=== PATIENT | male | born 1955 | race African-American/Black ===

== ENCOUNTER 2021-07-08 11:13 | Inpatient (IN) | payer OTHER ==
[2021-07-08 13:26] LABS: BASO % 1.3 % (0-2.0); EOS % 0.3 % (0-4.5); HEMATOCRIT 37.2 % (35.4-49); LYMPH % 16.5 % (8-40); MCH 30.3 pg (25.7-33.7); MEAN CELL VOLUME 86.5 fl (80-96); MEAN PLT VOLUME 8.6 fl (7.5-11.1); NEUT % 67.9 % (42.8-82.8); PLATELET COUNT 267 10^3/uL (134-434); RDW 17.4 % (11.9-15.9); WHITE BLOOD COUNT 2.9 K/mm3 (4.0-10.0)
[2021-07-08 13:48] LABS: BLOOD UREA NITROGEN 39.3 mg/dL (7-18); CALCIUM 8.9 mg/dL (8.5-10.1)
[2021-07-08 13:49] LABS: ALBUMIN 2.8 g/dl (3.4-5.0)
[2021-07-08 13:52] LABS: CREATININE 2.2 mg/dL (0.55-1.3)
[2021-07-08 13:54] LABS: BILIRUBIN,TOTAL 1.3 mg/dL (0.2-1); TOT PROT 5.7 g/dl (6.4-8.2)
[2021-07-08 14:10] LABS: INR 1.13 (0.83-1.09)
[2021-07-08] MEDS ORDERED: ACETAMINOPHEN 1000 MG/100 ML BAG IVPB PRN (16:40)
[2021-07-08] MEDS ORDERED: DOCUSATE SODIUM 100 MG CAPSULE (FP) PO PRN (16:40)
[2021-07-08] MEDS: SODIUM CHLORIDE 1,000 ML IV SCH (20:03)
[2021-07-08] MEDS ORDERED: oxyCODONE HCL 5 MG TABLET ONE (20:07)
[2021-07-08] MEDS: oxyCODONE HCL 5 MG TABLET PO PRN (20:13)
[2021-07-08] MEDS ORDERED: HEPARIN NA (PORCINE) 5,000 UNITS/ML 1ML VIAL SQ SCH (22:00)
[2021-07-08 23:42] VITALS: BMI 25.0
[2021-07-09] MEDS: HEPARIN NA (PORCINE) 5,000 UNITS/ML 1ML VIAL SQ SCH ×2 (09:12→21:49)
[2021-07-09] MEDS: amLODIPine BESYLATE 5 MG TABLET (FP) PO SCH (09:12)
[2021-07-09] MEDS: POLYETHYLENE GLYCOL (HEALTHYLAX) 3350 17 GM PACKET PO SCH (09:12)
[2021-07-09] MEDS: oxyCODONE HCL 5 MG TABLET PO PRN ×2 (09:20→20:22)
[2021-07-09 10:00] LABS: BASO % 1.1 % (0-2.0); EOS % 0.3 % (0-4.5); HEMATOCRIT 39.4 % (35.4-49); HEMOGLOBIN 13.3 GM/dL (11.7-16.9); LYMPH % 17.9 % (8-40); MCH 29.5 pg (25.7-33.7); MCHC 33.7 g/dl (32.0-35.9); MEAN CELL VOLUME 87.5 fl (80-96); MEAN PLT VOLUME 9.1 fl (7.5-11.1); NEUT % 69.7 % (42.8-82.8); PLATELET COUNT 271 10^3/uL (134-434); RBC 4.51 M/mm3 (4.00-5.60); RDW 17.3 % (11.9-15.9); WHITE BLOOD COUNT 3.4 K/mm3 (4.0-10.0)
[2021-07-09] MEDS ORDERED: ENOXAPARIN NA (PORCINE) 40 MG/0.4 ML DISP.SYRIN SQ SCH (10:00)
[2021-07-09] MEDS ORDERED: PIPERACILLIN/TAZOB 3.375 GM 3.375 GM in DEXTROSE 5%-WATER - 50 ML IVPB SCH (10:15)
[2021-07-09] MEDS ORDERED: DEXTROSE 5%-WATER - 50 ML IVPB ONE ×3 (10:32→20:10)
[2021-07-09] MEDS ORDERED: PIPERACILLIN/TAZOBACTAM 3.375 GM VIAL IVPB ONE (10:32)
[2021-07-09] MEDS: DOCUSATE SODIUM 100 MG CAPSULE (FP) PO SCH ×2 (10:35→21:49)
[2021-07-09 10:43] LABS: ALBUMIN 2.7 g/dl (3.4-5.0); BLOOD UREA NITROGEN 38.9 mg/dL (7-18); MAGNESIUM 2.7 mg/dL (1.8-2.4)
[2021-07-09 10:45] LABS: PHOSPHOROUS 4.9 mg/dL (2.5-4.9)
[2021-07-09 10:47] LABS: BILIRUBIN,TOTAL 1.4 mg/dL (0.2-1); TOT PROT 5.7 g/dl (6.4-8.2)
[2021-07-09 11:53] LABS: ANISOCYTOSIS 2+; MACROCYTOSIS 0; OVALOCYTE 1+; PLATELET ESTIMATE NORMAL
[2021-07-09] MEDS: SODIUM ZIRCONIUM CYCLOSILICATE (LOKELMA) 5 GM PACKET PO SCH (12:29)
[2021-07-09 14:11] LABS: SARS-CoV-2 NAA Not Detected (Not Detected)
[2021-07-09] MEDS: PIPERACILLIN/TAZOB 3.375 GM 3.375 GM in DEXTROSE 5%-WATER - 50 ML IVPB SCH ×2 (15:11→15:12)
[2021-07-09] MEDS ORDERED: PIPERACILLIN/TAZOBACTAM 2.25 GM VIAL IVPB ONE ×2 (15:13→20:09)
[2021-07-09] MEDS: PIPERACILLIN/TAZOB 2.25 GM 2.25 GM in DEXTROSE 5%-WATER - 50 ML IVPB SCH ×2 (15:14→20:22)
[2021-07-09 15:43] LABS: EPI CELLS 7 /uL (0-25.1); HYALINE CASTS 1 /uL (0-3.1); URINE APPEARANCE CLEAR; URINE BACTERIA 4 /uL (0-1359); URINE BILIRUBIN NEGATIVE (NEGATIVE); URINE COLOR DK YELLOW; URINE GLUCOSE (UA) NEGATIVE (NEGATIVE); URINE KETONE TRACE (NEGATIVE); URINE LEUK ESTERASE NEGATIVE (NEGATIVE); URINE NITRITE NEGATIVE (NEGATIVE); URINE PROTEIN 1+ (NEGATIVE); URINE RBC 6 /uL (0-23.9); URINE WBC 31 /uL (0-25.8)
[2021-07-09] MEDS ORDERED: MELATONIN 5 MG TABLETS PO ONE (19:52)
[2021-07-09] MEDS: SODIUM CHLORIDE 1,000 ML IV SCH (20:21)
[2021-07-10] MEDS ORDERED: PIPERACILLIN/TAZOBACTAM 2.25 GM VIAL IVPB ONE ×5 (00:58→21:11)
[2021-07-10] MEDS ORDERED: DEXTROSE 5%-WATER - 50 ML IVPB ONE ×5 (00:59→21:12)
[2021-07-10] MEDS: PIPERACILLIN/TAZOB 2.25 GM 2.25 GM in DEXTROSE 5%-WATER - 50 ML IVPB SCH ×4 (02:39→21:27)
[2021-07-10] MEDS: SODIUM ZIRCONIUM CYCLOSILICATE (LOKELMA) 5 GM PACKET PO SCH (09:41)
[2021-07-10] MEDS: DOCUSATE SODIUM 100 MG CAPSULE (FP) PO SCH ×2 (09:41→21:28)
[2021-07-10] MEDS: amLODIPine BESYLATE 5 MG TABLET (FP) PO SCH (09:41)
[2021-07-10] MEDS: HEPARIN NA (PORCINE) 5,000 UNITS/ML 1ML VIAL SQ SCH ×2 (09:42→21:28)
[2021-07-10] MEDS: POLYETHYLENE GLYCOL (HEALTHYLAX) 3350 17 GM PACKET PO SCH (09:42)
[2021-07-10 09:59] LABS: BASO % 1.1 % (0-2.0); EOS % 0.1 % (0-4.5); HEMATOCRIT 36.7 % (35.4-49); HEMOGLOBIN 12.5 GM/dL (11.7-16.9); LYMPH % 20.1 % (8-40); MCH 29.3 pg (25.7-33.7); MEAN CELL VOLUME 86.1 fl (80-96); MONO % 13.4 % (3.8-10.2); NEUT % 65.3 % (42.8-82.8); PLATELET COUNT 270 10^3/uL (134-434); RBC 4.27 M/mm3 (4.00-5.60); RDW 17.7 % (11.9-15.9); WHITE BLOOD COUNT 3.3 K/mm3 (4.0-10.0)
[2021-07-10 10:17] LABS: ALBUMIN 2.5 g/dl (3.4-5.0); BLOOD UREA NITROGEN 41.6 mg/dL (7-18); CALCIUM 8.8 mg/dL (8.5-10.1)
[2021-07-10 10:22] LABS: TOT PROT 5.5 g/dl (6.4-8.2)
[2021-07-10 10:24] LABS: BILIRUBIN,TOTAL 2.2 mg/dL (0.2-1)
[2021-07-10 12:22] LABS: ANISOCYTOSIS 0; MACROCYTOSIS 0; PLATELET ESTIMATE NORMAL
[2021-07-10] MEDS: oxyCODONE HCL 5 MG TABLET PO PRN (17:18)
[2021-07-10] MEDS: ACETAMINOPHEN 500 MG TABLET (FP) PO PRN (21:28)
[2021-07-11] MEDS ORDERED: PIPERACILLIN/TAZOBACTAM 2.25 GM VIAL IVPB ONE ×4 (01:24→21:05)
[2021-07-11] MEDS ORDERED: DEXTROSE 5%-WATER - 50 ML IVPB ONE ×4 (01:24→21:05)
[2021-07-11] MEDS: oxyCODONE HCL 5 MG TABLET PO PRN ×2 (02:07→10:54)
[2021-07-11] MEDS: PIPERACILLIN/TAZOB 2.25 GM 2.25 GM in DEXTROSE 5%-WATER - 50 ML IVPB SCH ×4 (02:07→21:47)
[2021-07-11] MEDS: amLODIPine BESYLATE 5 MG TABLET (FP) PO SCH (10:31)
[2021-07-11] MEDS: HEPARIN NA (PORCINE) 5,000 UNITS/ML 1ML VIAL SQ SCH ×2 (10:31→21:47)
[2021-07-11] MEDS: SODIUM ZIRCONIUM CYCLOSILICATE (LOKELMA) 5 GM PACKET PO SCH (10:31)
[2021-07-11] MEDS: DOCUSATE SODIUM 100 MG CAPSULE (FP) PO SCH ×2 (10:31→21:47)
[2021-07-11] MEDS: POLYETHYLENE GLYCOL (HEALTHYLAX) 3350 17 GM PACKET PO SCH (10:31)
[2021-07-11] MEDS ORDERED: guaiFENesin 200 MG/10 ML 10 ML UNIT-DOSE CUPS PO PRN (11:55)
[2021-07-11] MEDS ORDERED: chlorproMAZINE HCL 25 MG TABLET PO ONE (12:56)
[2021-07-11] MEDS: ALLOPURINOL 300 MG TABLET (FP) PO SCH (21:58)
[2021-07-12] MEDS ORDERED: PIPERACILLIN/TAZOBACTAM 2.25 GM VIAL IVPB ONE ×4 (01:43→20:47)
[2021-07-12] MEDS ORDERED: DEXTROSE 5%-WATER - 50 ML IVPB ONE ×4 (01:44→20:47)
[2021-07-12] MEDS: PIPERACILLIN/TAZOB 2.25 GM 2.25 GM in DEXTROSE 5%-WATER - 50 ML IVPB SCH ×4 (02:07→21:15)
[2021-07-12] MEDS: oxyCODONE HCL 5 MG TABLET PO PRN ×2 (08:46→15:07)
[2021-07-12 09:13] LABS: BASO % 2.1 % (0-2.0); EOS % 0.1 % (0-4.5); HEMATOCRIT 36.1 % (35.4-49); HEMOGLOBIN 12.6 GM/dL (11.7-16.9); LYMPH % 19.5 % (8-40); MCH 29.8 pg (25.7-33.7); MCHC 34.8 g/dl (32.0-35.9); MEAN CELL VOLUME 85.5 fl (80-96); MEAN PLT VOLUME 8.8 fl (7.5-11.1); NEUT % 68.3 % (42.8-82.8); PLATELET COUNT 263 10^3/uL (134-434); RBC 4.22 M/mm3 (4.00-5.60); WHITE BLOOD COUNT 3.3 K/mm3 (4.0-10.0)
[2021-07-12] MEDS: HEPARIN NA (PORCINE) 5,000 UNITS/ML 1ML VIAL SQ SCH ×2 (09:18→21:17)
[2021-07-12 09:25] LABS: INR 1.08 (0.83-1.09); PROTHROMBIN TIME (PATIENT) 12.4 SEC (9.7-13.0)
[2021-07-12 09:26] LABS: ACTIVATED PTT 26.6 SECONDS (25.2-36.5)
[2021-07-12 10:16] LABS: BLOOD UREA NITROGEN 43.1 mg/dL (7-18); CALCIUM 8.4 mg/dL (8.5-10.1)
[2021-07-12 10:19] LABS: URIC ACID 5.2 mg/dL (2.6-7.2)
[2021-07-12 10:20] LABS: CREATININE 2.3 mg/dL (0.55-1.3)
[2021-07-12] MEDS: SODIUM ZIRCONIUM CYCLOSILICATE (LOKELMA) 5 GM PACKET PO SCH (10:53)
[2021-07-12] MEDS: POLYETHYLENE GLYCOL (HEALTHYLAX) 3350 17 GM PACKET PO SCH (10:53)
[2021-07-12] MEDS: amLODIPine BESYLATE 5 MG TABLET (FP) PO SCH (10:53)
[2021-07-12] MEDS: DOCUSATE SODIUM 100 MG CAPSULE (FP) PO SCH ×2 (10:53→21:17)
[2021-07-12] MEDS: ALLOPURINOL 300 MG TABLET (FP) PO SCH (10:53)
[2021-07-12 17:02] LABS: BF WBC & OTHER NUCLEATED CELLS 1276 /mm3
[2021-07-12 19:01] LABS: BODY FLUID MACROPHAGES 15 %
[2021-07-13] MEDS ORDERED: PIPERACILLIN/TAZOBACTAM 2.25 GM VIAL IVPB ONE ×4 (00:45→21:37)
[2021-07-13] MEDS ORDERED: DEXTROSE 5%-WATER - 50 ML IVPB ONE ×4 (00:45→21:37)
[2021-07-13] MEDS: PIPERACILLIN/TAZOB 2.25 GM 2.25 GM in DEXTROSE 5%-WATER - 50 ML IVPB SCH ×4 (02:01→21:58)
[2021-07-13] MEDS: ACETAMINOPHEN 500 MG TABLET (FP) PO PRN (05:58)
[2021-07-13] MEDS ORDERED: METOCLOPRAMIDE HCL INJECTION 10 MG/2 ML VIAL IVPB PRN (07:16)
[2021-07-13 09:03] LABS: BASO % 0.9 % (0-2.0); EOS % 0.1 % (0-4.5); HEMATOCRIT 34.2 % (35.4-49); HEMOGLOBIN 11.7 GM/dL (11.7-16.9); LYMPH % 19.1 % (8-40); MCH 29.1 pg (25.7-33.7); MCHC 34.2 g/dl (32.0-35.9); MEAN CELL VOLUME 85.3 fl (80-96); MONO % 11.6 % (3.8-10.2); NEUT % 68.3 % (42.8-82.8); PLATELET COUNT 242 10^3/uL (134-434); RBC 4.01 M/mm3 (4.00-5.60); RDW 18.2 % (11.9-15.9)
[2021-07-13 09:28] LABS: ALBUMIN 2.2 g/dl (3.4-5.0); BLOOD UREA NITROGEN 48.4 mg/dL (7-18); CALCIUM 8.7 mg/dL (8.5-10.1)
[2021-07-13 09:30] LABS: URIC ACID 5.1 mg/dL (2.6-7.2)
[2021-07-13 09:31] LABS: CREATININE 2.8 mg/dL (0.55-1.3)
[2021-07-13 09:32] LABS: BILIRUBIN,TOTAL 1.7 mg/dL (0.2-1)
[2021-07-13] MEDS: ALLOPURINOL 300 MG TABLET (FP) PO SCH (09:54)
[2021-07-13] MEDS: DOCUSATE SODIUM 100 MG CAPSULE (FP) PO SCH ×2 (09:55→21:59)
[2021-07-13] MEDS: POLYETHYLENE GLYCOL (HEALTHYLAX) 3350 17 GM PACKET PO SCH (09:55)
[2021-07-13] MEDS: SODIUM ZIRCONIUM CYCLOSILICATE (LOKELMA) 5 GM PACKET PO SCH (09:55)
[2021-07-13] MEDS: amLODIPine BESYLATE 5 MG TABLET (FP) PO SCH (09:56)
[2021-07-13] MEDS: HEPARIN NA (PORCINE) 5,000 UNITS/ML 1ML VIAL SQ SCH ×2 (11:00→21:58)
[2021-07-13] MEDS ORDERED: SODIUM CHLORIDE 1,000 ML IV SCH (12:15)
[2021-07-13] MEDS: SODIUM CHLORIDE 1,000 ML IV SCH (16:27)
[2021-07-13] MEDS: PANTOPRAZOLE SODIUM 40 MG VIAL IVPB SCH (21:58)
[2021-07-14] MEDS ORDERED: DEXTROSE 5%-WATER - 50 ML IVPB ONE (02:05)
[2021-07-14] MEDS ORDERED: PIPERACILLIN/TAZOBACTAM 2.25 GM VIAL IVPB ONE (02:05)
[2021-07-14] MEDS: PIPERACILLIN/TAZOB 2.25 GM 2.25 GM in DEXTROSE 5%-WATER - 50 ML IVPB SCH ×2 (02:12→11:30)
[2021-07-14] MEDS: SODIUM CHLORIDE 1,000 ML IV SCH ×3 (02:13→20:00)
[2021-07-14] MEDS: oxyCODONE HCL 5 MG TABLET PO PRN (07:54)
[2021-07-14 08:55] LABS: EOS % 0.1 % (0-4.5); HEMATOCRIT 33.1 % (35.4-49); HEMOGLOBIN 11.5 GM/dL (11.7-16.9); LYMPH % 14.8 % (8-40); MCH 29.5 pg (25.7-33.7); MCHC 34.9 g/dl (32.0-35.9); MEAN CELL VOLUME 84.6 fl (80-96); MEAN PLT VOLUME 8.8 fl (7.5-11.1); MONO % 8.5 % (3.8-10.2); NEUT % 75.6 % (42.8-82.8); PLATELET COUNT 214 10^3/uL (134-434); RBC 3.91 M/mm3 (4.00-5.60); RDW 18.1 % (11.9-15.9); WHITE BLOOD COUNT 3.3 K/mm3 (4.0-10.0)
[2021-07-14 09:17] LABS: CALCIUM 8.3 mg/dL (8.5-10.1)
[2021-07-14 09:20] LABS: URIC ACID 4.6 mg/dL (2.6-7.2)
[2021-07-14 09:22] LABS: BILIRUBIN,TOTAL 1.4 mg/dL (0.2-1); TOT PROT 4.6 g/dl (6.4-8.2)
[2021-07-14] MEDS: POLYETHYLENE GLYCOL (HEALTHYLAX) 3350 17 GM PACKET PO SCH (10:09)
[2021-07-14] MEDS: DOCUSATE SODIUM 100 MG CAPSULE (FP) PO SCH ×2 (10:09→21:32)
[2021-07-14] MEDS: amLODIPine BESYLATE 5 MG TABLET (FP) PO SCH (10:10)
[2021-07-14] MEDS: SODIUM ZIRCONIUM CYCLOSILICATE (LOKELMA) 5 GM PACKET PO SCH (10:10)
[2021-07-14] MEDS: ALLOPURINOL 300 MG TABLET (FP) PO SCH (10:11)
[2021-07-14] MEDS: PANTOPRAZOLE SODIUM 40 MG VIAL IVPB SCH (10:11)
[2021-07-14] MEDS: HEPARIN NA (PORCINE) 5,000 UNITS/ML 1ML VIAL SQ SCH (10:12)
[2021-07-14] MEDS ORDERED: ALLOPURINOL 300 MG TABLET (FP) PO SCH (10:40)
[2021-07-14] MEDS ORDERED: SODIUM ZIRCONIUM CYCLOSILICATE (LOKELMA) 5 GM PACKET PO SCH (14:49)
[2021-07-14] MEDS ORDERED: SODIUM CHLORIDE 1,000 ML IV SCH (14:49)
[2021-07-14 15:08] LABS: SARS-CoV-2 NAA Not Detected (Not Detected)
[2021-07-14] MEDS ORDERED: HEPARIN NA (PORCINE) 5,000 UNITS/ML 1ML VIAL ONE (16:41)
[2021-07-14] MEDS ORDERED: LIDOCAINE HCL 1%, 10 MG/ML (20ML VIAL) ONE (16:42)
[2021-07-14 17:07] LABS: BODY FLUID ALBUMIN 1.9 g/dL (Not Estab.)
[2021-07-14] MEDS ORDERED: MIDAZOLAM HCL 2 MG/2 ML SINGLE DOSE VIAL ONE ×2 (17:17→18:10)
[2021-07-14] MEDS ORDERED: ONDANSETRON 4 MG/2 ML VIAL ONE (17:30)
[2021-07-14] MEDS ORDERED: ceFAZolin SODIUM 1 GM VIAL IVPB ONE (17:30)
[2021-07-14] MEDS ORDERED: ceFAZolin SODIUM 1 GM VIAL ONE (17:30)
[2021-07-14] MEDS ORDERED: LIDOCAINE HCL 1%, 10 MG/ML (20ML VIAL) INF ONE ×2 (17:46)
[2021-07-14] MEDS ORDERED: PROPOFOL 20 ML ONE (18:13)
[2021-07-14] MEDS ORDERED: HEPARIN NA (PORCINE) PF 1,000 UNITS/ML - 2ML VIAL SQ ONE (18:14)
[2021-07-14] MEDS ORDERED: guaiFENesin 200 MG/10 ML 10 ML UNIT-DOSE CUPS PO PRN (20:00)
[2021-07-14] MEDS ORDERED: oxyCODONE HCL 5 MG TABLET PO PRN (20:00)
[2021-07-14] MEDS ORDERED: ACETAMINOPHEN 500 MG TABLET (FP) PO PRN (20:00)
[2021-07-14] MEDS ORDERED: METOCLOPRAMIDE HCL INJECTION 10 MG/2 ML VIAL IVPB PRN (20:00)
[2021-07-14 20:23] LABS: EPI CELLS 31 /uL (0-25.1); HYALINE CASTS 8 /uL (0-3.1); URINE APPEARANCE CLOUDY; URINE BACTERIA 0 /uL (0-1359); URINE BILIRUBIN NEGATIVE (NEGATIVE); URINE COLOR DK YELLOW; URINE GLUCOSE (UA) NEGATIVE (NEGATIVE); URINE KETONE TRACE (NEGATIVE); URINE LEUK ESTERASE NEGATIVE (NEGATIVE); URINE NITRITE NEGATIVE (NEGATIVE); URINE PROTEIN 1+ (NEGATIVE); URINE RBC 15 /uL (0-23.9)
[2021-07-14 21:09] LABS: URINE WBC 61 /uL (0-25.8)
[2021-07-15] MEDS: SODIUM CHLORIDE 1,000 ML IV SCH ×2 (07:01→21:13)
[2021-07-15 09:49] LABS: BASO % 1.2 % (0-2.0); HEMATOCRIT 35.5 % (35.4-49); HEMOGLOBIN 11.8 GM/dL (11.7-16.9); LYMPH % 17.3 % (8-40); MCH 28.7 pg (25.7-33.7); MCHC 33.1 g/dl (32.0-35.9); MEAN CELL VOLUME 86.9 fl (80-96); MONO % 9.7 % (3.8-10.2); NEUT % 71.8 % (42.8-82.8); PLATELET COUNT 223 10^3/uL (134-434); RBC 4.09 M/mm3 (4.00-5.60); RDW 18.7 % (11.9-15.9); WHITE BLOOD COUNT 3.8 K/mm3 (4.0-10.0)
[2021-07-15 10:00] LABS: CALCIUM 8.4 mg/dL (8.5-10.1)
[2021-07-15] MEDS ORDERED: SODIUM ZIRCONIUM CYCLOSILICATE (LOKELMA) 5 GM PACKET PO SCH (10:00)
[2021-07-15] MEDS ORDERED: POLYETHYLENE GLYCOL (HEALTHYLAX) 3350 17 GM PACKET PO SCH (10:00)
[2021-07-15] MEDS ORDERED: PANTOPRAZOLE SODIUM 40 MG VIAL IVPB SCH (10:00)
[2021-07-15] MEDS ORDERED: ALLOPURINOL 300 MG TABLET (FP) PO SCH (10:00)
[2021-07-15] MEDS ORDERED: amLODIPine BESYLATE 5 MG TABLET (FP) PO SCH (10:00)
[2021-07-15 10:01] LABS: BLOOD UREA NITROGEN 63.9 mg/dL (7-18)
[2021-07-15 10:04] LABS: URIC ACID 5.4 mg/dL (2.6-7.2)
[2021-07-15] MEDS: DOCUSATE SODIUM 100 MG CAPSULE (FP) PO SCH ×2 (11:29→21:13)
[2021-07-15] MEDS ORDERED: SODIUM CHLORIDE 250 ML IV ONE (19:00)
[2021-07-15] MEDS ORDERED: HEPARIN NA (PORCINE) 5,000 UNITS/ML 1ML VIAL SQ SCH (22:00)
[2021-07-15 22:02] VITALS: BP 84/56; PULSE 110; TEMP 98.3
== END 2021-07-16 01:00 | disposition short-term general hospital (02) | DRG 841 ==
LOC: JER 11:13 → JERBED 14:28 → J8W 23:02
PROVIDERS: ADMIT Internal Medicine
PROC: 0W9B30Z Drainage of Left Pleural Cavity with Drainage Device, Percutaneous Approach (ICD-10-PCS; principal; 2021-07-08)
PROC: 0W993ZX Drainage of Right Pleural Cavity, Percutaneous Approach, Diagnostic (ICD-10-PCS; 2021-07-12)
PROC: 0WPBX0Z Removal of Drainage Device from Left Pleural Cavity, External Approach (ICD-10-PCS; 2021-07-12)
PROC: 02HV33Z Insertion of Infusion Device into Superior Vena Cava, Percutaneous Approach (ICD-10-PCS; 2021-07-14)
PROC: B548ZZA Ultrasonography of Superior Vena Cava, Guidance (ICD-10-PCS; 2021-07-14)
DX: C84.40 Peripheral T-cell lymphoma, not elsewhere classified, unspecified site (principal); E87.1 Hypo-osmolality and hyponatremia; N17.9 Acute kidney failure, unspecified; J91.0 Malignant pleural effusion; D72.819 Decreased white blood cell count, unspecified; I12.9 Hypertensive chronic kidney disease with stage 1 through stage 4 chronic kidney disease, or unspecified chronic kidney disease; N18.9 Chronic kidney disease, unspecified; E87.5 Hyperkalemia; R16.0 Hepatomegaly, not elsewhere classified; I95.9 Hypotension, unspecified
CPT/HCPCS: 32555; 32557; 36415; 70450-TC; 71045-TC-FY; 71046-TC-FY; 71250-TC; 74176-TC; 76000-TC-FY; 76775-TC; 80048; 80053; 81003; 82042; 82150; 82550; 82570; 82945; 82955; 82962; 83615; 83735; 83930; 83935; 83986; 84100; 84156; 84157; 84300; 84478; 84484; 84550; 85025; 85384; 85610; 85730; 86160; 86704; 87040; 87070; 87075; 87086; 87102; 87116; 87205; 87206; 87210; 87340; 88108; 88305-TC; 93005; 93010; 93306-TC; 94760; 97116-GP; 97161-GP; 99285-25; C1729; C1769; C9803; J1644; Q9967; U0003; U0005